=== PATIENT | female | born 1985 | race African-American/Black ===

== ENCOUNTER 2018-03-21 20:58 | Emergency (ER) | payer SELFPAY ==
--- NOTE | 2018-03-21 21:13 | PDOC ---
History of Present Illness - General Stated Complaint: FALL Time Seen by Provider: 03/21/18 21:09 - History of Present Illness Initial Comments: 03/21/18 21:12 33 yo F with no significant pmh BIBA with left hip and knee pain s/p mechanical fall 15 minutes [employer]. Patient reports she was in lobby of her apartment building holding her child, and slipped on a puddle of water, causing her foot to slide outwards and landing backwards from standing height hitting her head on the carpeted floor. History is slightly unclear as patient does not recall all events, LOC, or head trauma, but speculates that she hit the back of her head directly onto floor, without controlled fall. EMS reports that witnesses in lobby deny patient hitting head, and falling forward onto carpet. Denies neck, back pain, or bleeding. Denies anticoagulation. Now with diffuse headache, and L hip and knee pain. Patient non ambulatory following fall. Patient denies N/V, F/C, CP, SOB, palpitations, urinary complaints, hematuria, abdominal pain, diarrhea, constipation, BPR, lightheadedness, weakness, sensory changes. PMHx: as noted above ROS: as noted SHx: Denies Allergies: NKDA Past History - Past Medical History Allergies/Adverse Reactions: Allergies Allergy/AdvReac Type Severity Reaction Status Date / Time No Known Allergies Allergy Verified 03/21/18 21:38 Home Medications: Ambulatory Orders Tramadol HCl [Ultram] 50 mg PO TID PRN #10 tablet MDD 3 tabs 03/22/18 Tramadol HCl [Ultram] 50 mg PO TID PRN #10 tablet MDD 3 tabs 03/22/18 Review of Systems - Review of Systems Comments:: 03/21/18 21:12 GENERAL/CONSTITUTIONAL: No fever or chills. No weakness. HEAD, EYES, EARS, NOSE AND THROAT: No change in vision. No ear pain or discharge. No sore throat. CARDIOVASCULAR: No chest pain or shortness of breath RESPIRATORY: No cough, wheezing, or hemoptysis. GASTROINTESTINAL: No nausea, vomiting, diarrhea or constipation. GENITOURINARY: No dysuria, frequency, or change in urination. MUSCULOSKELETAL: + joint / muscle pain. No neck or back pain. SKIN: No rash NEUROLOGIC:+headache. No vertigo, loss of consciousness, or change in strength/ sensation. ENDOCRINE: No increased thirst. No abnormal weight change HEMATOLOGIC/LYMPHATIC: No anemia, easy bleeding, or history of blood clots. ALLERGIC/IMMUNOLOGIC: No hives or skin allergy. *Physical Exam - Physical Exam Comments: 03/21/18 21:13 GENERAL: Awake, alert, and fully oriented, in no acute distress HEAD: No signs of trauma, normocephalic, atraumatic EYES: PERRLA, EOMI, sclera anicteric, conjunctiva clear ENT: Auricles normal inspection, hearing grossly normal, nares patent, oropharynx clear without exudates. Moist mucosa NECK: Normal ROM, supple, no lymphadenopathy, JVD, or masses LUNGS: No distress, speaks full sentences, clear to auscultation bilaterally HEART: Regular rate and rhythm, normal S1 and S2, no murmurs, rubs or gallops, peripheral pulses normal and equal bilaterally. ABDOMEN: Soft, nontender, normoactive bowel sounds. No guarding, no rebound. No masses EXTREMITIES : Normal inspection, Normal range of motion, no edema. No clubbing or cyanosis. BL DP, and PT pulses intact KNEE: Left tibial plateau ttp, with absent effusion, ertyhema, warmth. Neg ant/ post drawer test. Neg varus/valgus deformity. Nml patella laxity. HIP: L greater trochanter ttp, with absent limb length discrepancy, eversion/ inversion of foot. Normal ROM, slightly limited 2/2 pain. NEUROLOGICAL: Cranial nerves II through XII grossly intact. Normal speech, normal gait, no focal sensorimotor deficits SKIN: Warm, Dry, normal turgor, no rashes or lesions noted Medical Decision Making - Medical Decision Making 03/21/18 21:50 33 yo F with no significant pmh BIBA with left hip and knee pain s/p mechanical fall 15 minutes [employer]. Temp 100.5 Oral. VSS, GCS 15, A&OX3. Left greater trochanteric and prepatellar ttp, without obvious bony deformity. ROM limited 2/ 2 pain. Ext neurovascularly intact. Absent neuro deficits. Low suspicion basilar skull fracture ( absent periorbital or retro auricular ecchymosis,or hematympanum), SAH, hematoma, skull fracture. C spine neg based on NEXUS criteria. Low suspicion facial bone fracture. Pain control and imaging to r/o L hip and L knee fracture or dislocation. ED Course 03/21/18 21:57 Tylenol LEFT KNEE RAD, LEFT HIP RAD, CTH [facility] 03/22/18 01:09 [facility] [place]: Neg CT: Unremarkable 03/22/18 02:37 Left HIP/ KNEE/ FEMUR RAD: No acute pathology on preliminary ED read. Patient stable for d/c with return precautions. Advised to f/u with PMD. 03/22/18 03:45 Tramadol sent to pharmacy *DC/Admit/Observation/Transfer Diagnosis at time of Disposition: Fall from standing Qualifiers: Encounter type: initial encounter Qualified Code(s): W19.XXXA - Unspecified fall, initial encounter Hip pain Qualifiers: Laterality: left Qualified Code(s): M25.552 - Pain in left hip - Discharge Dispostion Disposition: HOME Condition at time of disposition: Stable Decision to Admit order: No - Prescriptions Prescriptions: Tramadol HCl [Ultram] 50 mg PO TID PRN #10 tablet MDD 3 tabs PRN Reason: Pain Tramadol HCl [Ultram] 50 mg PO TID PRN #10 tablet MDD 3 tabs PRN Reason: Pain - Referrals Referrals: ON STAFF,NOT [Primary Care Provider] - - Patient Instructions Printed Discharge Instructions: DI for Groin Strain Additional Instructions: Please return to the emergency department with any new or worsening symptoms or concerns. Please follow up with your primary care physician within 72 hours. - Post Discharge Activity Forms/Work/School Notes: Back to Work - Attestations Physician Attestion: 03/21/18 23:11 I attest to the information provided in this note.
[2018-03-21] MEDS ORDERED: ACETAMINOPHEN 325 MG TABLET (FP) PO ONE (21:57)
[2018-03-21] MEDS ORDERED: ACETAMINOPHEN 325 MG TABLET (FP) ONE (22:07)
[2018-03-21 22:08] VITALS: BP 110/78; PULSE 72; TEMP 100.5; BMI 26.6
[2018-03-21] MEDS ORDERED: traMADol HCL 50 MG TABLET PO ONE (22:31)
--- NOTE | 2018-03-21 22:31 | PDOC ---
Attending Attestation - Resident Resident Name: Josh Ayala - ED Attending Attestation I have performed the following: I have examined & evaluated the patient, The case was reviewed & discussed with the resident, I agree w/resident's findings & plan - HPI HPI: 03/21/18 22:28 Healthy 33-year-old female presents with left leg and head injury after slip and fall. Patient slipped on water, fell backward hyperextending her left hip and knee and striking the back of her head. There was no loss of consciousness, no subsequent vision change/speech change/nausea/vomiting/focal deficit, she's had difficulty bearing weight on her left lower extremity so EMS was activated and she presents for evaluation. - Physicial Exam PE: 03/21/18 22:29 Temp 100.5, we'll repeat. Vitals otherwise normal. Head is atraumatic, C-spine nontender with full range of motion Heart/lungs/abdomen benign Pelvis is stable, no focal bony tenderness to palpation or deformity along the left hip/femur/knee, though there is tenderness along the left inguinal region and along the medial joint space of left knee with possible small effusion. Stable to anterior/posterior/valgus/varus stress, neurovascular intact distally. Neurologically intact - Medical Decision Making 03/21/18 22:30 33-year-old female with slip and fall, left leg injury seems most consistent with soft tissue strain, rule out fracture. Head injury, neurologically intact. CT head Left hip/knee x-rays Pain control Reassess
[2018-03-21] MEDS ORDERED: traMADol HCL 50 MG TABLET ONE (22:39)
== END 2018-03-22 03:24 | disposition home or self-care (01) ==
LOC: JER 20:58
DX: M25.552 Pain in left hip (principal); X58.XXXA Exposure to other specified factors, initial encounter; Y93.89 Activity, other specified; Y92.9 Unspecified place or not applicable
CPT/HCPCS: 36415; 70450-TC; 73523-TC-FY; 73552-TC-LT-FY; 73560-TC-LT-FY; 84703; 99281-25

== ENCOUNTER 2020-11-22 17:11 | Emergency (ER) | payer OTHER ==
[2020-11-22 17:20] VITALS: BP 103/67; PULSE 72; TEMP 98.1; BMI 32.6
[2020-11-22 18:30] LABS: BASO % 0.8 % (0-2.0); EOS % 1.5 % (0-4.5); HEMATOCRIT 35.3 % (32.4-45.2); HEMOGLOBIN 11.9 GM/dL (10.7-15.3); LYMPH % 38.1 % (8-40); MCH 31.5 pg (25.7-33.7); MCHC 33.6 g/dl (32.0-36.0); MEAN CELL VOLUME 93.6 fl (80-96); MEAN PLT VOLUME 10.1 fl (7.5-11.1); MONO % 8.3 % (3.8-10.2); NEUT % 51.3 % (42.8-82.8); PLATELET COUNT 188 K/MM3 (134-434); RBC 3.77 M/mm3 (3.60-5.2); RDW 14.1 % (11.6-15.6); WHITE BLOOD COUNT 5.9 K/mm3 (4.0-10.0)
[2020-11-22 18:48] LABS: CHLORIDE 109 mmol/L (98-107); SODIUM 140 mmol/L (136-145)
[2020-11-22 18:51] LABS: CALCIUM 8.5 mg/dL (8.5-10.1)
[2020-11-22 18:52] LABS: ALBUMIN 3.6 g/dl (3.4-5.0); ANION GAP 3 MMOL/L (8-16); BLOOD UREA NITROGEN 10.7 mg/dL (7-18); CO2 27 mmol/L (21-32); GLUCOSE,RANDOM 81 mg/dL (74-106)
[2020-11-22 18:55] LABS: CREATININE 0.8 mg/dL (0.55-1.3); SGOT/AST 10 U/L (15-37); SGPT/ALT 14 U/L (13-61)
[2020-11-22 18:56] LABS: BILIRUBIN,TOTAL 0.5 mg/dL (0.2-1); TOT PROT 7.2 g/dl (6.4-8.2)
[2020-11-22 18:58] LABS: ALK PHOS 64 U/L (45-117)
[2020-11-22 19:31] LABS: URINE APPEARANCE CLOUDY; URINE BILIRUBIN NEGATIVE (NEGATIVE); URINE COLOR YELLOW; URINE GLUCOSE (UA) NEGATIVE (NEGATIVE); URINE KETONE TRACE (NEGATIVE); URINE LEUK ESTERASE NEGATIVE (NEGATIVE); URINE NITRITE NEGATIVE (NEGATIVE); URINE PROTEIN NEGATIVE (NEGATIVE)
== END 2020-11-22 21:13 | disposition home or self-care (01) ==
LOC: JER 17:11
DX: R09.1 Pleurisy (principal)
CPT/HCPCS: 36415; 71046-TC-FY; 80053; 81003; 84484; 84702; 84703; 85025; 85379; 87086; 93005; 93010; 99284-25

== ENCOUNTER 2021-12-27 10:58 | Emergency (ER) | payer OTHER ==
[2021-12-27 11:39] VITALS: BP 113/7; PULSE 66; TEMP 97.9; BMI 34.6
== END 2021-12-27 13:05 | disposition home or self-care (01) ==
LOC: JERFT 10:58
DX: N61.0 Mastitis without abscess (principal)
CPT/HCPCS: 99281-25